=== PATIENT | male | born 1945 | race African-American/Black ===

== ENCOUNTER 2016-07-22 18:58 | Inpatient (IN) | payer MEDICARE, MEDICAID ==
[~2016-07-22] VITALS: Ht 170.2 cm; Wt 56.7 kg
[~2016-07-22 18:58] MED LIST: AMLO10TA4 PO; ASPI-1035 PO; ASPI325T2 PO; CARV6.2548 PO; CLOP75TA2 PO; DEXA4TAB PO; FERR-63 PO; FLUT1DIS2 IH; FOLI-43 PO; MAGN500C4 PO; OLAN5TAB26 PO; OMEP20TA80 PO; TIOT18CA3 IH
[2016-07-22 20:03] LABS: HEMATOCRIT. 32.3 % (42.0-52.0); HEMOGLOBIN. 10.6 g/dL (14.0-18.0); MEAN CORPUSCULAR HEMOGLOBIN 31.8 pg (28.0-32.0); MEAN CORPUSCULAR HGB CONC 32.9 g/dL (31.0-37.0); MEAN CORPUSCULAR VOLUME 96.9 fL (80.0-94.0); MEAN PLATELET VOLUME 9.1 fl (7.4-10.4); PLATELET 201 x1000/uL (130-400); RED BLOOD CELL COUNT 3.33 mill/uL (4.7-6.1); RED CELL DISTRIBUTION WIDTH 17.6 % (11.6-14.6); WHITE BLOOD COUNT 10.8 x1000/uL (4.5-11.0)
[2016-07-22 20:04] LABS: DIFFERENTIAL COMMENT 1
[2016-07-22 20:17] LABS: ALANINE AMINOTRANSFERASE 31 IU/L (13-61); ALBUMIN 2.1 g/dL (3.4-5.0); ANION GAP 17; CALCIUM 8.2 mg/dL (8.5-10.1); CARBON DIOXIDE 24 mEq/L (21-32); CHLORIDE 100 mEq/L (98-107); ETHANOL BLOOD < 10 mg/dL; INDEX HEMOLYSI 1 (1-3); INDEX ICTERIC 1 (1-4); INDEX LIPEMIC 1 (1-3); UREA NITROGEN BLOOD 26 mg/dL (7-21); eGFR > 60 mL/min (>60)
[2016-07-22 20:23] LABS: ATYPICAL LYMPHOCYTES 2; NUCLEATED RED BLOOD CELLS 4 /100 WBC; PLATELET ESTIMATE NORMAL
[2016-07-22 20:24] LABS: ANISOCYTOSIS 2+
[2016-07-22] MEDS ORDERED: LEVETIRACETAM 500MG PREMIX 100 ML IV ONE (21:15)
[2016-07-22] MEDS ORDERED: VALPROATE SODIUM 500 MG in SODIUM CHLORIDE 0.9% 100 ML IV SCH (21:15)
[2016-07-22] MEDS ORDERED: DIVA-18 PO (22:06)
[2016-07-22] MEDS ORDERED: KEPP500 PO (22:06)
[2016-07-23] VITALS (25 sets, daily range): BP systolic 119–146; BP diastolic 58–93
[2016-07-23] MEDS ORDERED: SODIUM CHLORIDE 0.9% 1,000 ML IV SCH (08:14)
[2016-07-23] MEDS ORDERED: MAGNESIUM/ALUMINUM HYDROXIDE/SIMETHICONE 30ML UDC PO PRN (08:15)
[2016-07-23] MEDS ORDERED: IPRATROPIUM/ALBUTEROL 0.5-3(2.5)MG/3ML NEB INH PRN (08:15)
[2016-07-23] MEDS ORDERED: ACETAMINOPHEN 325MG TABLET PO PRN (08:15)
[2016-07-23] MEDS ORDERED: ACETAMINOPHEN 650MG/20.3ML UDC GT PRN (08:15)
[2016-07-23] MEDS ORDERED: DIPHENHYDRAMINE 50MG/ML VIAL IV PRN (08:15)
[2016-07-23] MEDS ORDERED: CLONIDINE 0.1MG TABLET PO PRN (08:15)
[2016-07-23] MEDS ORDERED: HYDROCODONE/ACETAMINOPHEN 5/325MG TABLET PO PRN (08:15)
[2016-07-23] MEDS ORDERED: NA PHOS,M-B/NA PHOS,DI-BA ENEMA 118ML PR PRN (08:15)
[2016-07-23] MEDS ORDERED: ONDANSETRON HCL 4MG/2ML VIAL IV PRN (08:15)
[2016-07-23] MEDS ORDERED: GUAIFENESIN 200MG/10ML SUGAR FREE UDC PO PRN (08:15)
[2016-07-23] MEDS ORDERED: LORAZEPAM 2MG/ML CPJ IV PRN (08:15)
[2016-07-23] MEDS ORDERED: ACETAMINOPHEN 650MG SUPP PR PRN (08:15)
[2016-07-23 08:40] LABS: HEMATOCRIT. 32.6 % (42.0-52.0); HEMOGLOBIN. 10.8 g/dL (14.0-18.0); MEAN CORPUSCULAR HEMOGLOBIN 31.6 pg (28.0-32.0); MEAN CORPUSCULAR HGB CONC 33.2 g/dL (31.0-37.0); MEAN CORPUSCULAR VOLUME 95.2 fL (80.0-94.0); MEAN PLATELET VOLUME 8.4 fl (7.4-10.4); PLATELET 204 x1000/uL (130-400); RED BLOOD CELL COUNT 3.43 mill/uL (4.7-6.1); RED CELL DISTRIBUTION WIDTH 17.1 % (11.6-14.6); WHITE BLOOD COUNT 11.8 x1000/uL (4.5-11.0)
[2016-07-23 08:41] LABS: DIFFERENTIAL COMMENT 1
[2016-07-23 08:56] LABS: ALANINE AMINOTRANSFERASE 26 IU/L (13-61); ALBUMIN 2.2 g/dL (3.4-5.0); ANION GAP 12; CALCIUM 8.3 mg/dL (8.5-10.1); CARBON DIOXIDE 28 mEq/L (21-32); CHLORIDE 101 mEq/L (98-107); INDEX HEMOLYSI 1 (1-3); INDEX ICTERIC 1 (1-4); INDEX LIPEMIC 1 (1-3); UREA NITROGEN BLOOD 24 mg/dL (7-21); eGFR > 60 mL/min (>60)
[2016-07-23 09:06] LABS: ANISOCYTOSIS 1+; NUCLEATED RED BLOOD CELLS 6 /100 WBC; PLATELET ESTIMATE NORMAL
[2016-07-23] MEDS ORDERED: DOCUSATE SODIUM 100MG CAPSULE PO PRN (10:04)
[2016-07-23] MEDS ORDERED: DEXAMETHASONE 4MG TABLET PO SCH ×2 (10:11→10:15)
[2016-07-23] MEDS ORDERED: ENOXAPARIN 40MG/0.4ML SYR SUBCUT SCH (10:17)
[2016-07-23 10:29] LABS: BG BASE EXCESS -1.7 mmol/L (-2.0-2.0); BG CARBOXYHEMOGLOBIN 0.3 % (0.5-1.5); BG DEOXYHEMOGLOBIN 10.2 % (0.0-5.0); BG FRACTION INSPIRED OXYGEN 60; BG HCO3 ACT 20.1 mmol/L (22.0-26.0); BG METHEMOGLOBIN 0.4 % (0.0-1.5); BG OXYGEN SATURATION 89.7 % (92.0-98.5); BG OXYHEMOGLOBIN 89.1 % (94.0-97.0); BG PH 7.507 (7.350-7.450); BG PO2 56.4 mmHg (75.0-100.0); BG SAMPLE SITE LEFT BRACHIAL; BG TOTAL HEMOGLOBIN 11.7 g/dL (12.0-18.0); BG VENT MODE MASK - SIMPLE
[2016-07-23] MEDS ORDERED: LEVETIRACETAM 500MG PREMIX 100 ML IV SCH (10:30)
[2016-07-23] MEDS ORDERED: SODIUM CHLORIDE 0.9% 10ML VIAL ONE (11:49)
[2016-07-23] MEDS ORDERED: IOHEXOL-350 100 ML BOTTLE ONE (11:49)
[2016-07-23] MEDS: CEFTRIAXONE 1 G PREMIX 50 ML IV SCH (12:18)
[2016-07-23] MEDS: DEXAMETHASONE 4MG/ML 1ML VIAL IV SCH ×3 (12:18→23:30)
[2016-07-23] MEDS: DEXT 5%/0.9% NACL 1,000 ML IV SCH ×2 (12:18→23:31)
[2016-07-23] MEDS ORDERED: THIAMINE HCL 100 MG in SODIUM CHLORIDE 0.9% 50 ML IV NR (12:30)
[2016-07-23] MEDS: LEVETIRACETAM 500MG in SODIUM CHLORIDE 0.9% 100ML IV SCH ×2 (12:51→23:30)
[2016-07-23] MEDS: SODIUM CHLORIDE 0.9% INJ 3ML FLUSH IVF SCH ×2 (13:53→21:29)
[2016-07-23] MEDS ORDERED: ENOXAPARIN 60MG/0.6ML SYR SUBCUT ONE (14:45)
[2016-07-23 15:13] LABS: BG BASE EXCESS 0.9 mmol/L (-2.0-2.0); BG CARBOXYHEMOGLOBIN 0.3 % (0.5-1.5); BG DEOXYHEMOGLOBIN 7.7 % (0.0-5.0); BG FRACTION INSPIRED OXYGEN 60; BG HCO3 ACT 23.3 mmol/L (22.0-26.0); BG METHEMOGLOBIN 0.2 % (0.0-1.5); BG OXYGEN SATURATION 92.3 % (92.0-98.5); BG OXYHEMOGLOBIN 91.8 % (94.0-97.0); BG PCO2 30.1 mmHg (35.0-45.0); BG PH 7.507 (7.350-7.450); BG PO2 65.7 mmHg (75.0-100.0); BG SAMPLE SITE LEFT RADIAL; BG VENT MODE MASK - AEROSOL
[2016-07-23] MEDS ORDERED: ENOXAPARIN 60MG/0.6ML SYR SUBCUT NR (15:15)
[2016-07-23 17:27] LABS: CLARITY URINE CLEAR (CLEAR); COLOR URINE YELLOW (YELLOW); GLUCOSE URINE NEGATIVE (NEGATIVE); KETONES URINE NEGATIVE (NEGATIVE); LEUKOCYTE ESTERASE URINE NEGATIVE (NEGATIVE); NITRITE URINE NEGATIVE (NEGATIVE); OCCULT BLOOD URINE NEGATIVE (NEGATIVE); PROTEIN URINE NEGATIVE (NEGATIVE); UROBILINOGEN URINE 0.2 E.U./dL (0.2-1.0)
[2016-07-23 17:59] LABS: *AMPHETAMINES SCREEN URINE NEGATIVE (NEGATIVE); *BARBITURATES SCREEN URINE NEGATIVE (NEGATIVE); *BENZODIAZEPINES SCREEN URINE PRESUMTIVE POSITIVE (NEGATIVE); *COCAINE SCREEN URINE NEGATIVE (NEGATIVE); CANNABINOID URINE SCREEN NEGATIVE (NEGATIVE); ECSTASY MDMA SCREEN URINE NEGATIVE (NEGATIVE); METHADONE URINE SCREEN NEGATIVE (NEGATIVE); OPIATES URINE SCREEN PRESUMTIVE POSITIVE (NEGATIVE); PHENCYCLIDINE URINE SCREEN NEGATIVE (NEGATIVE)
[2016-07-23 19:42] LABS: INR 1.2; PARTIAL THROMBOPLASTIN TIME 40.2 sec (24.0-34.0); PROTHROMBIN TIME 12.2 sec
[2016-07-23 19:45] LABS: AMMONIA 21 uMol/L (<32)
[2016-07-24] VITALS (56 sets, daily range): BP systolic 103–156; BP diastolic 46–104
[2016-07-24 03:58] LABS: HEMATOCRIT. 30.3 % (42.0-52.0); HEMOGLOBIN. 10.3 g/dL (14.0-18.0); MEAN CORPUSCULAR HEMOGLOBIN 32.1 pg (28.0-32.0); MEAN CORPUSCULAR VOLUME 94.7 fL (80.0-94.0); PLATELET 170 x1000/uL (130-400); RED CELL DISTRIBUTION WIDTH 17.3 % (11.6-14.6); WHITE BLOOD COUNT 9.7 x1000/uL (4.5-11.0)
[2016-07-24 03:59] LABS: DIFFERENTIAL COMMENT 1
[2016-07-24 04:58] LABS: ANION GAP 14; CALCIUM 7.4 mg/dL (8.5-10.1); CARBON DIOXIDE 26 mEq/L (21-32); CHLORIDE 104 mEq/L (98-107); HDL CHOLESTEROL 49 mg/dL (40-59); INDEX HEMOLYSI 1 (1-3); INDEX ICTERIC 1 (1-4); INDEX LIPEMIC 1 (1-3); LDL CHOLESTEROL 62 mg/dL (5-100); MAGNESIUM 2.4 mg/dL (1.8-2.4); TRIGLYCERIDE 80 mg/dL (0-150); TROPONIN I 0.06 ng/mL (0.00-0.04); UREA NITROGEN BLOOD 19 mg/dL (7-21); eGFR > 60 mL/min (>60)
[2016-07-24 05:15] LABS: ALANINE AMINOTRANSFERASE 18 IU/L (13-61)
[2016-07-24] MEDS: DEXAMETHASONE 4MG/ML 1ML VIAL IV SCH ×4 (07:27→23:05)
[2016-07-24] MEDS: SODIUM CHLORIDE 0.9% INJ 3ML FLUSH IVF SCH ×3 (07:28→23:04)
[2016-07-24 08:00] LABS: BG BASE EXCESS -2.3 mmol/L (-2.0-2.0); BG DEOXYHEMOGLOBIN 6.1 % (0.0-5.0); BG FRACTION INSPIRED OXYGEN 60; BG HCO3 ACT 20.5 mmol/L (22.0-26.0); BG METHEMOGLOBIN 0.2 % (0.0-1.5); BG OXYGEN SATURATION 93.9 % (92.0-98.5); BG OXYHEMOGLOBIN 93.7 % (94.0-97.0); BG PCO2 29.2 mmHg (35.0-45.0); BG PH 7.464 (7.350-7.450); BG PO2 72.9 mmHg (75.0-100.0); BG SAMPLE SITE RIGHT BRACHIAL; BG TOTAL HEMOGLOBIN 11.4 g/dL (12.0-18.0); BG VENT MODE MASK - AEROSOL
[2016-07-24 08:07] LABS: NUCLEATED RED BLOOD CELLS 1 /100 WBC
[2016-07-24 08:08] LABS: PLATELET ESTIMATE NORMAL
[2016-07-24] MEDS: ENOXAPARIN 30MG/0.3ML SYR SUBCUT SCH (08:12)
[2016-07-24] MEDS: THIAMINE HCL 100 MG in SODIUM CHLORIDE 0.9% 49 ML IV SCH (08:13)
[2016-07-24] MEDS: LEVETIRACETAM 500MG in SODIUM CHLORIDE 0.9% 100ML IV SCH (12:47)
[2016-07-24] MEDS ORDERED: ASPIRIN 325MG TABLET PO SCH (14:30)
[2016-07-24] MEDS: AMLODIPINE 10MG TABLET PO SCH (16:00)
[2016-07-24] MEDS: ASPIRIN 81MG EC TABLET PO SCH (16:00)
[2016-07-24] MEDS: CEFTRIAXONE 1 G PREMIX 50 ML IV SCH (16:25)
[2016-07-24] MEDS: DEXT 5%/0.9% NACL 1,000 ML IV SCH (16:38)
[2016-07-24] MEDS: CARVEDILOL 6.25 MG TABLET PO SCH (17:00)
[2016-07-24] MEDS ORDERED: DIVALPROEX SODIUM 500MG DR TABLET PO SCH (17:00)
[2016-07-24] MEDS ORDERED: LEVETIRACETAM 500MG TABLET PO SCH (17:00)
[2016-07-25] VITALS (10 sets, daily range): BP systolic 116–149; BP diastolic 64–94
[2016-07-25] MEDS: DEXT 5%/0.9% NACL 1,000 ML IV SCH (01:50)
[2016-07-25] MEDS: DEXAMETHASONE 4MG/ML 1ML VIAL IV SCH ×2 (06:45→12:52)
[2016-07-25] MEDS: SODIUM CHLORIDE 0.9% INJ 3ML FLUSH IVF SCH ×2 (06:45→14:49)
[2016-07-25 08:30] LABS: HEMATOCRIT. 27.2 % (42.0-52.0); HEMOGLOBIN. 9.2 g/dL (14.0-18.0); MEAN CORPUSCULAR HEMOGLOBIN 32.2 pg (28.0-32.0); MEAN CORPUSCULAR HGB CONC 33.8 g/dL (31.0-37.0); MEAN CORPUSCULAR VOLUME 95.2 fL (80.0-94.0); MEAN PLATELET VOLUME 8.8 fl (7.4-10.4); PLATELET 180 x1000/uL (130-400); RED BLOOD CELL COUNT 2.86 mill/uL (4.7-6.1); RED CELL DISTRIBUTION WIDTH 17.7 % (11.6-14.6)
[2016-07-25 08:38] LABS: DIFFERENTIAL COMMENT 1
[2016-07-25] MEDS: THIAMINE HCL 100 MG in SODIUM CHLORIDE 0.9% 49 ML IV SCH (08:49)
[2016-07-25] MEDS: ENOXAPARIN 30MG/0.3ML SYR SUBCUT SCH (08:49)
[2016-07-25] MEDS ORDERED: DEXAMETHASONE 4MG TABLET PO SCH (09:00)
[2016-07-25] MEDS ORDERED: CLOPIDOGREL 75MG TABLET PO SCH (09:00)
[2016-07-25] MEDS ORDERED: FOLIC ACID 1MG TABLET PO SCH (09:00)
[2016-07-25 09:09] LABS: ALANINE AMINOTRANSFERASE 18 IU/L (13-61); ALBUMIN 1.9 g/dL (3.4-5.0); ANION GAP 12; CALCIUM 7.4 mg/dL (8.5-10.1); CARBON DIOXIDE 26 mEq/L (21-32); CHLORIDE 107 mEq/L (98-107); INDEX HEMOLYSI 1 (1-3); INDEX ICTERIC 1 (1-4); INDEX LIPEMIC 1 (1-3); UREA NITROGEN BLOOD 19 mg/dL (7-21); eGFR > 60 mL/min (>60)
[2016-07-25] MEDS: ASPIRIN 81MG EC TABLET PO SCH (11:27)
[2016-07-25] MEDS: CARVEDILOL 6.25 MG TABLET PO SCH (11:27)
[2016-07-25] MEDS: AMLODIPINE 10MG TABLET PO SCH (11:27)
[2016-07-25] MEDS ORDERED: VALPROATE SODIUM 500 MG in SODIUM CHLORIDE 0.9% 100 ML IV SCH (11:30)
[2016-07-25] MEDS ORDERED: LEVETIRACETAM 750 MG in SODIUM CHLORIDE 0.9% 100 ML IV SCH (11:30)
[2016-07-25 12:35] LABS: NUCLEATED RED BLOOD CELLS 2 /100 WBC
[2016-07-25 12:36] LABS: ANISOCYTOSIS 1+; PLATELET ESTIMATE NORMAL
[2016-07-25] MEDS: CEFTRIAXONE 1 G PREMIX 50 ML IV SCH (14:49)
== END 2016-07-25 18:08 | disposition home or self-care (01) | DRG 54 ==
LOC: ER 18:58 → 6WST 07-23 09:30 → 5EST 07-23 10:28 → CVICU 07-23 13:30 → 3WST 07-24 20:15
PROVIDERS: ADMIT General Practice; ATTEND Family Medicine
DX: C79.31 Secondary malignant neoplasm of brain (principal); G93.41 Metabolic encephalopathy; J96.00 Acute respiratory failure, unspecified whether with hypoxia or hypercapnia; C34.90 Malignant neoplasm of unspecified part of unspecified bronchus or lung; E46 Unspecified protein-calorie malnutrition; I42.9 Cardiomyopathy, unspecified; Z68.1 Body mass index [BMI] 19.9 or less, adult; D64.9 Anemia, unspecified; G40.901 Epilepsy, unspecified, not intractable, with status epilepticus; I10 Essential (primary) hypertension; J44.9 Chronic obstructive pulmonary disease, unspecified; L89.90 Pressure ulcer of unspecified site, unspecified stage; Z74.01 Bed confinement status; Z82.49 Family history of ischemic heart disease and other diseases of the circulatory system; Z92.21 Personal history of antineoplastic chemotherapy; Z92.3 Personal history of irradiation; Z82.0 Family history of epilepsy and other diseases of the nervous system; Z86.19 Personal history of other infectious and parasitic diseases
CPT/HCPCS: 36415; 36600; 70450; 70551; 71010; 71275; 78580; 80053; 80061; 80165; 80305; 81003; 82140; 82375; 82805; 82962; 83605; 83735; 84484; 85025; 85379; 85610; 85730; 87040; 92610; 93970; 96365; 96367; 97162; 99285; A4216; G0482; J0696; J1100; J1650; J1953; J3411; J3490; J7042; J7050; Q9967; A4315